=== PATIENT | male | born 1985 | race Caucasian/White ===

== ENCOUNTER 2017-05-08 14:49 | Emergency (ER) | payer SELFPAY ==
[2017-05-08] MEDS ORDERED: diPHENhydraMINE PO* 50 MG PO ONE (14:56)
[2017-05-08] MEDS ORDERED: predniSONE TAB* 20 MG PO ONE (14:57)
[2017-05-08] MEDS ORDERED: EPINEPHrine AMP 1 MG/ML IM ONE (14:58)
[2017-05-08] MEDS ORDERED: EPINEPHRINE 1 MG/ML 1 ML VIAL ONE (15:44)
[2017-05-08 16:10] VITALS: BP 113/67
--- NOTE | 2017-05-22 07:17 | UC ---
Allergic Reaction HPI - HPI Summary HPI Summary: 31 yo male was working outside today ([employer]) when he developed a diffuse itchy rash He felt faint He had some throat tightness no f/c no co no sob - History of Current Complaint Chief Complaint: UCAllergicReaction Stated Complaint: SOB ALLERGIC REACTION Time Seen by Provider: 05/08/17 14:56 Hx Obtained From: Patient Onset/Duration: Gradual Onset, Lasting Hours Severity Initially: Mild Severity Currently: Severe Pain Intensity: 0 Pain Scale Used: 0-10 Numeric Location: Diffuse Character: Pruritus Aggravating Factor(s): Heat Alleviating Factor(s): Nothing Associated Signs And Symptoms: Positive: Lightheadedness, Rash, Throat Tightening - Related Hx Possible Reaction To: Unknown - Allergies/Home Medications Allergies/Adverse Reactions: Allergies Allergy/AdvReac Type Severity Reaction Status Date / Time No Known Allergies Allergy Verified 04/24/15 21:28 PMH/Surg Hx/FS Hx/Imm Hx Previously Healthy: Yes - Surgical History Surgical History: None - Family History Known Family History: Positive: Hypertension - Social History Alcohol Use: Weekly Substance Use Type: None Smoking Status (MU): Former Smoker Review of Systems Constitutional: Negative Skin: Rash Eyes: Negative ENT: Negative Respiratory: Negative Cardiovascular: Negative Gastrointestinal: Negative Genitourinary: Negative Motor: Negative Neurovascular: Negative Musculoskeletal: Negative Neurological: Negative Psychological: Negative Is Patient Immunocompromised?: No All Other Systems Reviewed And Are Negative: Yes Physical Exam Triage Information Reviewed: Yes Appearance: Well-Appearing, No Pain Distress, Well-Nourished Vital Signs: Initial Vital Signs Temp 98 F 05/08/17 15:04 Pulse 74 05/08/17 15:04 Resp 18 05/08/17 15:04 BP 146/91 05/08/17 15:04 Pulse Ox 100 05/08/17 15:04 Vital Signs Reviewed: Yes Eyes: Positive: Conjunctiva Clear ENT: Positive: Hearing grossly normal, Other: - no lip/tongue/uvular edema. Negative: Nasal congestion, Nasal drainage, Trismus, Muffled/hoarse voice Neck: Positive: Supple, Nontender, No Lymphadenopathy Respiratory: Positive: Lungs clear, Normal breath sounds, No respiratory distress Cardiovascular: Positive: RRR, No Murmur Abdomen Description: Positive: Nontender, No Organomegaly Musculoskeletal: Positive: ROM Intact, No Edema Neurological: Positive: Alert Psychological Exam: Normal Skin Exam: Other - urticaria/dermatographia Allergic Reaction Course/Dx - Course Course Of Treatment: prolonged period of observation. instructed on use of epipen and need for f/u with controlled atmospheric furnace brazer. marked improved at d/c. rash almost completely gone/no pruritis/no throat tightness - Differential Dx/Diagnosis Provider Diagnoses: anaphylatic reaction Discharge - Discharge Plan Condition: Improved Disposition: HOME Prescriptions: Epinephrine [Epipen 2-Marco] 0.3 mg IM ONCE #1 inj Famotidine TAB* [Pepcid 20 MG TAB*] 20 mg PO DAILY #5 tab Prednisone [Deltasone] 40 mg PO DAILY #8 tab hydrOXYzine HCL TAB* [Atarax TAB*] 25 mg PO QID PRN #20 tab PRN Reason: Itching Patient Education Materials: Anaphylaxis (ED) Referrals: Gunnar Diaz MD [Medical Doctor] - As Soon As Possible Gil Aguilar MD [Medical Doctor] - As Soon As Possible No Primary Care Phys,NOPCP [Primary Care Provider] - Additional Instructions: recheck for worsening symptoms you should follow up with an controlled atmospheric furnace brazer call for any questions
== END 2017-05-08 15:53 | disposition home or self-care (01) ==
LOC: UCEAST 14:49
DX: T78.2XXA Anaphylactic shock, unspecified, initial encounter (principal); R21 Rash and other nonspecific skin eruption; R07.0 Pain in throat; Z87.891 Personal history of nicotine dependence
CPT/HCPCS: 96372; 99212; A9270-GY; G0463; J0171; J7512

== ENCOUNTER 2017-05-12 20:06 | Emergency (ER) | payer SELFPAY ==
[2017-05-12] MEDS ORDERED: NS 0.9% 1000 ML* 1,000 ML IV ONE (22:59)
--- NOTE | 2017-05-12 23:00 | ED ---
Complex/Multi-Sys Presentation - HPI Summary HPI Summary: 31 male [facility] with complaints of having an allergic reaction after eating trail mix. Patient states he had similar reaction this past Friday after eating trail mix as well. Patient however did not know this was the possible allergen. Given medications, including atarax, famotidine and prednisone however did not take them until today when symptoms returned again. Patient states the symptoms have resolved after taking his medication and given benadryl on ambulance. Symptoms included, hives, itching, feeling lightheaded and SOB. Denies throat swelling and difficulty breathing. Also of complaint is patient has began having 6-7 episodes of bloody diarrhea. States it is a a significant amount and bright to dark colored red. Denies nausea/vomiting. No recent travel or antibiotic use. No abdominal pain except when he is having a bowel movement, has some dull aching/cramping pain. No other pain. Denies fever/ chills. No PMHx or other complaints.No abdominal surgeries or prior history. No urinary or genitalia symptoms. - History Of Current Complaint Chief Complaint: EDAllergicReaction Time Seen by Provider: 05/12/17 20:15 Hx Obtained From: Patient Onset/Duration: Sudden Onset, Lasting Days Timing: Constant Severity Currently: None Severity Initially: Mild Aggravating Factor(s): nothing Alleviating Factor(s): nothing Associated Signs And Symptoms: Positive: SOB - allergic reaction- resolved, Diarrhea - w/ blood, Other - rash urticaria/pruritis resolved- allergic reaction - Allergies/Home Medications Allergies/Adverse Reactions: Allergies Allergy/AdvReac Type Severity Reaction Status Date / Time No Known Allergies Allergy Verified 04/24/15 21:28 PMH/Surg Hx/FS Hx/Imm Hx Endocrine/Hematology History: Denies: Hx Diabetes Cardiovascular History: Denies: Hx Hypertension Respiratory History: Denies: Hx Asthma - Surgical History Surgery Procedure, Year, and Place: n/a - Immunization History Immunizations Up to Date: Yes Infectious Disease History: No Infectious Disease History: Denies: Hx Clostridium Difficile, Hx Hepatitis, Hx Human Immunodeficiency Virus (HIV), Hx of Known/Suspected MRSA, Hx Shingles, Hx Tuberculosis, Hx Known/ Suspected VRE, Hx Known/Suspected VRSA, History Other Infectious Disease, Traveled Outside the [place] in Last 30 Days - Family History Known Family History: Positive: None - Social History Alcohol Use: Weekly Substance Use Type: Reports: None Smoking Status (MU): Former Smoker Review of Systems Constitutional: Negative Cardiovascular: Negative Positive: Shortness Of Breath - resolved Positive: Abdominal Pain, Diarrhea Genitourinary: Negative Positive: Rash - uricaria, resolved Neurological: Negative All Other Systems Reviewed And Are Negative: Yes Physical Exam Triage Information Reviewed: Yes Vital Signs On Initial Exam: Initial Vitals Temp Pulse Resp BP Pulse Ox 97.9 F 54 18 115/68 100 05/12/17 20:09 05/12/17 20:09 05/12/17 20:09 05/12/17 20:09 05/12/17 20:09 Vital Signs Reviewed: Yes Appearance: Positive: Well-Appearing, No Pain Distress, Well-Nourished Skin: Positive: Warm, Skin Color Reflects Adequate Perfusion, Dry, Other - no sign currently of urticaria or rash noted. Negative: Cold, Cyanosis @, Pale, Erythema @ Head/Face: Positive: Normal Head/Face Inspection Eyes: Positive: Conjunctiva Clear ENT: Positive: Hearing grossly normal, Pharynx normal Neck: Positive: Supple, Nontender Respiratory/Lung Sounds: Positive: Clear to Auscultation, Breath Sounds Present. Negative: Rales, Rhonchi, Wheezes Cardiovascular: Positive: Normal, RRR, Pulses are Symmetrical in both Upper and Lower Extremities. Negative: Murmur, Rub Abdomen Description: Positive: Nontender - throughout, No Organomegaly, Soft. Negative: Bruit, CVA Tenderness (R), CVA Tenderness (L), Distended, Guarding, McBurney's Point Tenderness, Peritoneal Signs, Pulsatile Mass Bowel Sounds: Positive: Present, Hyperactive Male Genital Exam: Positive: normal genitalia - per patient Musculoskeletal: Positive: Normal, Strength/ROM Intact Neurological: Positive: Normal, Sensory/Motor Intact, Alert, Oriented to Person Place, Time, CN Intact II-III, Reflexes Intact, NV Bundle Intact Distally, Normal Gait Psychiatric: Positive: Affect/Mood Appropriate - [place] Coma Scale Coma Scale Total: 15 Diagnostics - Vital Signs Vital Signs Temp Pulse Resp BP Pulse Ox 05/12/17 20:09 97.9 F 54 18 115/68 100 - Laboratory Result Diagrams: 05/12/17 23:24 05/12/17 23:24 Lab Statement: Any lab studies that have been ordered have been reviewed, and results considered in the medical decision making process. Re-Evaluation - Re-Evaluation First Eval Re-Evaluation Time: 12:00 Change: Unchanged - still feeling comfortable without complaint. Second Eval Re-Evaluation Time: 02:22 Change: Unchanged - updated on lab results and plan of action. patients questions were answered, agrees and understands, follow up PCP. 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 not currently having any allergic symptoms, resolved prior to being evaluated. with additional complaint of blood in loose stool, full work up was completed. WBC with left shift and CRP elevated. Appears patient is suffering from a colitis. Normal vitals. No abdominal pain or other significant PE findings. Occult blood positive. Stool culture pending. Patient was comfortable throughout stay. Due to HPI, PE findings and labs will treat for a colitis. Continue allergy medications to avoid allergic reaction symptoms and do not eat trail mix. No concern for other emergent etiology at this time. No further imaging appears to be required, non tender abdomen. Will treat with Cipro/Flagyl. fluids and BRAT diet. Follow up with PCP/GI. Aware of worsening signs and symptoms to watch out for and to return immediately if occur or symptoms persist/worsen. Patient agrees and understands. recommeded allergy testing. - Diagnoses Differential Diagnoses/HQI/PQRI: Urinary Tract Infection, Other - allergic reaction, colitis, appendicitis, diarrhea, hematochezia, c diff, IBS Provider Diagnoses: Colitis, Allergic reaction Discharge - Discharge Plan Condition: Stable Disposition: HOME Prescriptions: Ciprofloxacin TAB* [Cipro 500 MG TAB*] 500 mg PO BID #14 tab Metronidazole [Flagyl 500 MG TAB] 500 mg PO TID #1 tab predniSONE TAB* [Deltasone TAB*] 20 mg PO DAILY #3 tab Patient Education Materials: Urticaria (ED), Colitis (ED), General Allergic Reaction (ED) Referrals: Selina Sales [Primary Care Provider] - Catrachito Summers MD [Medical Doctor] - Additional Instructions: Take prescribed antibiotics as directed to help with colitis. Continue anti-inflammatory medication and allergy medication to prevent allergic reaction, 7 days total. Drink plenty of fluids. Recommend BRAT diet (bananas, rice, applesauce and toast). Follow up with PCP within 1 week. Any new or worsening symptoms such as fever/chills, pain and increasing amount of blood, please seek medical attention immediately. Recommend allergy testing.
[2017-05-12 23:41] LABS: Hematocrit 46 % (42-52); Mean Corpuscular HGB Conc 35 g/dl (31-36); Mean Corpuscular Hemoglobin 31 pg (27-31); Mean Corpuscular Volume 90 fL (80-94); Mean Platelet Volume 8 um3 (7.4-10.4); Red Blood Count 5.09 10^6/ul (4.0-5.4); Red Cell Distribution Width 13 % (10.5-15); White Blood Count 21.1 10^3/ul (3.5-10.8)
[2017-05-12 23:54] LABS: ALT 16 U/L (7-52); AST 18 U/L (13-39); Albumin 3.9 g/dL (3.2-5.2); Alkaline Phosphatase 60 U/L (34-104); Anion Gap 5 mmol/L (2-11); BUN/Creatinine Ratio 20.6 (8-20); Blood Urea Nitrogen 21 mg/dL (6-24); C Reactive Protein < 1.00 mg/L (< 5.00); CO2 Carbon Dioxide 27 mmol/L (22-32); Calcium 9.2 mg/dL (8.6-10.3); Chloride 104 mmol/L (101-111); EGFR Non-African American 86.3 (>60); Globulin 2.4 g/dL (2-4); Glucose 118 mg/dL (70-100); Lipase 20 U/L (11.0-82.0); Magnesium 2.1 mg/dL (1.9-2.7); Potassium 4.5 mmol/L (3.5-5.0); Sodium 136 mmol/L (133-145); Total Protein 6.3 g/dL (6.4-8.9)
[2017-05-13 00:41] LABS: Urine Bacteria Absent (Absent); Urine Bilirubin Negative (Negative); Urine Glucose Negative (Negative); Urine Nitrite Negative (Negative)
[2017-05-13] MEDS ORDERED: Ciprofloxacin TAB* 500 MG PO ONE (02:06)
[2017-05-13] MEDS ORDERED: metroNIDAZOLE TAB* 250 MG PO ONE (02:07)
[2017-05-13 02:31] VITALS: BP 104/41
== END 2017-05-13 02:32 | disposition home or self-care (01) ==
LOC: ED 20:06
DX: K52.9 Noninfective gastroenteritis and colitis, unspecified (principal); T78.1XXA Other adverse food reactions, not elsewhere classified, initial encounter; L50.0 Allergic urticaria; R06.02 Shortness of breath; X58.XXXA Exposure to other specified factors, initial encounter; Z87.891 Personal history of nicotine dependence
CPT/HCPCS: 36415; 80053; 81003; 81015; 82272; 83605; 83630; 83690; 83735; 85025; 86140; 86850; 86900; 86901; 87045; 87046; 87077; 87493; 87899; 99282; A9270-GY

== ENCOUNTER 2018-08-06 14:35 | Inpatient (IN) | payer OTHER ==
[2018-08-06 15:10] LABS: Urine Appearance Clear; Urine Bacteria 1+ (Absent); Urine Bilirubin Negative (Negative); Urine Blood 1+ (Negative); Urine Color Straw; Urine Glucose Negative (Negative); Urine Ketones Trace (Negative); Urine Nitrite Negative (Negative); Urine Protein Negative (Negative); Urine Red Blood Cell Trace(0-2/hpf) (Absent); Urine Specific Gravity 1.003 (1.010-1.030); Urine Urobilinogen Negative (Negative); Urine White Blood Cell Absent (Absent)
--- NOTE | 2018-08-06 15:19 | ED ---
Psychiatric Complaint - HPI Summary HPI Summary: Patient is a 32 y/o M presenting to ED with complaints of ricky. Mother is present in the room. He claims that he is possibly bipolar, possibly schizophrenic. He states that he is "obviously manic". He reports that in the past three days he has had three hours of sleep. He notes that his face is red, hands cracked and chapped as he has been spending a lot of time outside. He works at [employer]. PMHx of manic depression and OCD. He is not on any medications at present. Patient went to [facility] today, spoke with Radha, who is his counselor. Radha referred patient to ED. Patient reports Hx of marijuana usage, states that he stopped smoking June of 2018. He denies visual hallucinations but endorses auditory hallucinations stating The TV can talk to me if I allow it to. Patient claims that God, a higher power talks to him as well. However, he states that he has not been having these auditory hallucinations recently. Patient states that he was obsessed with the [employer]umin[employer] in 2017. He states that he was in the and tells a story about him whipping his testicles out at a large [employer] function. He states that psychiatric problems onset when he started smoking marijuana. Patient notes that he started smoking spice afterwards while he was in the . FMHx of schizophrenia. He went into ten years ago. On triage, pain is denied, nothing is noted to aggravate/alleviate Sx. Home medications, allergies, and nurse's note reviewed. - History Of Current Complaint Chief Complaint: EDMentalHealth Time Seen by Provider: 08/06/18 14:52 Hx Obtained From: Patient Onset/Duration: Lasting Days - three days, only three hours of sleep, Still Present Timing: Constant Severity Currently: None - pain denied Character: Manic Aggravating Factor(s): Nothing Alleviating Factor(s): Nothing Associated Signs And Symptoms: Positive: Sleep Disturbance - three hours of sleep over past three days - Allergies/Home Medications Allergies/Adverse Reactions: Allergies Allergy/AdvReac Type Severity Reaction Status Date / Time nut - unspecified Allergy Hives Verified 08/06/18 15:37 PMH/Surg Hx/FS Hx/Imm Hx Endocrine/Hematology History: Denies: Hx Diabetes Cardiovascular History: Denies: Hx Hypertension Respiratory History: Denies: Hx Asthma Psychiatric History: Reports: Other Psychiatric Issues/Disorders - OCD, manic depression - Surgical History Surgery Procedure, Year, and Place: n/a Infectious Disease History: No Infectious Disease History: Denies: Hx Clostridium Difficile, Hx Hepatitis, Hx Human Immunodeficiency Virus (HIV), Hx of Known/Suspected MRSA, Hx Shingles, Hx Tuberculosis, Hx Known/ Suspected VRE, Hx Known/Suspected VRSA, History Other Infectious Disease, Traveled Outside the [place] in Last 30 Days - Family History Known Family History: Positive: Other - FMHx of schizophrenia - Social History Alcohol Use: Weekly Substance Use Type: Reports: None Smoking Status (MU): Former Smoker Review of Systems Positive: Other - POSITIVE - LACK OF SLEEP Positive: Other - REDNESS OF FACE, HANDS ARE CRACKED AND CHAPPED Psychological: Other - POSITIVE - RICKY, AUDITORY HALLUCINATIONS; NEGATIVE - VISUAL HALLUCINATIONS All Other Systems Reviewed And Are Negative: Yes Physical Exam - Summary Physical Exam Summary: Appearance: Well appearing, no pain distress Skin: warm, dry, reflects adequate perfusion; chaffing of hands, erythema of face Head/face: normal Eyes: EOMI, HUMBLE ENT: mucous membranes moist Neck: supple, non-tender Respiratory: CTA, breath sounds present Cardiovascular: RRR, pulses symmetrical Abdomen: non-tender, soft Bowel Sounds: present Musculoskeletal: normal, strength/ROM intact Neuro: normal, sensory motor intact, A&Ox3 Psych: rambling, tangential speech, bizarre affect Triage Information Reviewed: Yes Vital Signs On Initial Exam: Initial Vitals Temp Pulse Resp BP Pulse Ox 98.3 F 98 20 131/103 100 08/06/18 14:40 08/06/18 14:40 08/06/18 14:40 08/06/18 14:40 08/06/18 14:40 Vital Signs Reviewed: Yes Diagnostics - Vital Signs Vital Signs Temp Pulse Resp BP Pulse Ox 08/06/18 14:40 98.3 F 98 20 131/103 100 - Laboratory Result Diagrams: 08/06/18 15:24 08/06/18 15:24 Lab Statement: Any lab studies that have been ordered have been reviewed, and results considered in the medical decision making process. - EKG 1525 Cardiac Rate: NL - rate of 85 BPM EKG Rhythm: Sinus Rhythm ST Segment: Normal Summary of EKG Findings: EKG showed NSR with rate of 85 BPM, normal axis, normal intervals, normal ST with baseline artifact. Re-Evaluation - Re-Evaluation First Eval Re-Evaluation Time: 18:05 Comment: Patient was medically cleared for MHE. Course/Dx - Course Course Of Treatment: Nurse's notes reviewed. Patient is manic and experiencing positive symptoms. His CPK was slightly elevated and so IV fluids were given. Drug screen might not be accurate due to patient diluting it with water. This may have to be repeated. He was cleared for mental health evaluation and is pending that assessment. Signed out to oncoming ER physician. - Differential Dx/Clinical Impression Differential Diagnosis/HQI/PQRI: Positive: Acute Psychosis, Anxiety, Bipolar Disorder, Depression, Schizophrenia Provider Diagnosis: Acute psychosis Discharge - Sign-Out/Discharge Documenting (check all that apply): Sign-Out Patient Signing out patient TO: Noah Vargas Receiving patient FROM: Real Corcoran - Discharge Plan Condition: Stable Referrals: Antoine RJAAN,Selina Alexander [Physician Mild Disabilities Teacher] - - Billing Disposition and Condition Condition: STABLE - Attestation Statements Document Initiated by Scribe: Yes Documenting Scribe: MARGAUX CONTRERAS Provider For Whom Scribe is Documenting (Include Credential): REAL CORCORAN MD Scribe Attestation: I, MARGAUX CONTRERAS , scribed for RELA CORCORAN MD on 08/06/18 at 1838. Scribe Documentation Reviewed: Yes Provider Attestation: The documentation as recorded by the MARGAUX monk accurately reflects the service I personally performed and the decisions made by me, REAL CORCORAN MD Status of Scribe Document: Viewed
[2018-08-06 15:28] LABS: Barbiturates Urine Screen None Detected (None Detect); Benzodiazepine Urine Screen None Detected (None Detect); Urine Cannabinoids Screen None Detected (None Detect)
[2018-08-06 15:32] LABS: ABS Basophils 0.1 10^3/ul (0-0.2); ABS Eosinophils 0 10^3/ul (0-0.6); ABS Monocytes 0.9 10^3/ul (0-0.8); ABS Nucleated RBC 0 10^3/ul; Eosinophil % 0.2 %; Hematocrit 47 % (42-52); Hemoglobin 16.3 g/dl (14.0-18.0); Lymphocyte % 24.9 %; Mean Corpuscular HGB Conc 34 g/dl (31-36); Mean Corpuscular Hemoglobin 31 pg (27-31); Mean Corpuscular Volume 91 fL (80-94); Nucleated Red Blood Cells % 0.1; Platelet Count 285 10^3/ul (150-450); Red Blood Count 5.22 10^6/ul (4.00-5.40); Red Cell Distribution Width 14 % (10.5-15)
[2018-08-06 15:57] LABS: ALT 49 U/L (7-52); AST 58 U/L (13-39); Alkaline Phosphatase 77 U/L (34-104); Anion Gap 6 mmol/L (2-11); BUN/Creatinine Ratio 9.8 (8-20); Blood Urea Nitrogen 10 mg/dL (6-24); CO2 Carbon Dioxide 30 mmol/L (22-32); Calcium 10.1 mg/dL (8.6-10.3); Chloride 102 mmol/L (101-111); EGFR Non-African American 85.8 (>60); Globulin 2.5 g/dL (2-4); Glucose 121 mg/dL (70-100); Potassium 4.1 mmol/L (3.5-5.0); Sodium 138 mmol/L (135-145); Total Protein 7.5 g/dL (6.4-8.9)
[2018-08-06 16:11] LABS: Acetaminophen < 15 mcg/mL; Alcohol < 10 mg/dL (<10); Salicylate < 2.50 mg/dL (<30)
[2018-08-06] MEDS ORDERED: NS 0.9% 1000 ML* 1,000 ML IV ONE ×2 (16:13)
[2018-08-06 16:25] LABS: TSH (Thyroid Stimulating Horm) 1.78 mcIU/mL (0.34-5.60)
[2018-08-06] MEDS ORDERED: LORazepam TAB(*) 1 MG PO ONE (16:55)
--- NOTE | 2018-08-06 19:28 | ED ---
Progress - Progress Note Progress Note: This pt was signed out by Dr. Corcoran, pending disposition, awaiting mental health evaluation. Pt had a mental health evaluation and his case was reviewed by Dr. Nuñez, psychiatrist. Dr. Nuñez will admit the pt involuntary to [facility] with dx with psychosis NOS. Re-Evaluation - Re-Evaluation First Eval Re-Evaluation Time: 18:05 Comment: Patient was medically cleared for MHE. Course/Dx - Diagnoses Provider Diagnoses: Unspecified psychosis Discharge - Sign-Out/Discharge Documenting (check all that apply): Patient Departure - Admit to [facility], Receiving Sign-Out Receiving patient FROM: Real Corcoran - Discharge Plan Condition: Stable Disposition: [facility]CHIATRIC FACILITY-[facility] Referrals: Antoine RAJAN,Selina Alexander [Physician Tooth Polisher] - - Attestation Statements Document Initiated by Scribe: Yes Documenting Scribe: Kenia Philip Provider For Whom Scribe is Documenting (Include Credential): Noah Vargas MD Scribe Attestation: Kenia Toth, scribed for Noah Vargas MD on 08/06/18 at 2004. Status of Scribe Document: Ready
[2018-08-06] MEDS ORDERED: Mouth Piece, Nicotine* 1 EACH CARTRIDGE ONE (20:00)
[2018-08-06] MEDS ORDERED: Al Hydrox/Mg Hydrox/Simet LIQ* 30 ML UDC PO PRN (21:23)
[2018-08-06] MEDS: LORazepam TAB(*) 1 MG PO PRN (22:58)
[2018-08-06] MEDS: Nicotine GUM* 2 MG PO PRN (23:35)
[2018-08-07 08:11] LABS: HDL Cholesterol 69.4 mg/dL
[2018-08-07] MEDS: Mouth Piece, Nicotine* 1 EACH CARTRIDGE INH PRN (09:09)
[2018-08-07] MEDS: Multivitamins/Minerals TAB PO SCH (09:09)
[2018-08-07] MEDS: Nicotine Inhaler* 10 MG AMP INH PRN ×2 (09:09→19:01)
[2018-08-07] MEDS: Nicotine GUM* 2 MG PO PRN ×5 (09:13→23:40)
--- NOTE | 2018-08-07 11:23 | PN ---
[facility]: Group Therapy Note - Service Type Service Type: 13118 Group Psychotherapy - Cognitive Behavioral Group Therapy ( CBT):Patient presented in CBT programming as disorganized and disruptive in discussion and needed repeated redirection to attend to presented materials.
--- NOTE | 2018-08-07 14:08 | HP ---
H&P (Free Text) History and Physical: CC "I am manic HPI 32 year old white single male with past history of bipolar disorder presented to the Emergency room with his mother. He reported that he added 5000 facebook friends last night and has been up for the last 2 days. Because I am manic. I want to be a falken, its where I luciano with birds who go fetch my meals. He reported that he goes on facebook all day and night and sends messages to everyone he knows. He said that he wishes to go out in the [place] all day and night to hike. He reports not eating much recently I dont have a appetite. He denied suicidal ideation, intent or plan. He denied homicidal ideation intent or plan. He reports that the last time he used cannabis was July 17. He reports since stopping using cannabis he can walk far distances and spend unlimited time hiking outdoors. Bipolar He reported feeling irritable most of the time while having an persistent abundance of energy most of the day without the use of energy drinks, stimulants , or recreational drug use. He reported having the decreased need to sleep, and a prolonged elevated heighted mood . he reported racing thoughts about how he is going to be a famous plant botanist. MDD He reported in the past having feelings of low self worth , feeling empty inside , with feelings of hopelessness .He reported unintentional weight loss and lack of appetite . He has trouble staying asleep and wakes up during the night. He in the past reported prolonged periods of low levels of energy, concentration, and difficulty initiating and completing tasks. Psychosis He denied hearing things that other people do not hear or seeing things other people do not see. He denied feeling that the TV is making references. He said that he is trustful of others and feels safe on the unit. The patient denied auditory and/ or visual hallucinations. Anxiety He denied having symptoms of anxiety. He denied worrying most of the day and denied panic attacks. PTSD He denied flashbacks or recurrent nightmares or avoidance. PAST PSYCHIATRIC HISTORY: History of Bipolar disorder 1st admission: 1 past hospitalizations in 2009 to [facility] for 10 days for synthetic cannabis induced psychosis History of past suicide/homicide attempts : Denied past suicide attempts. He denied past homicidal incidents. Outpatient follow-up: Currently receiving mental health treatment follow up care at [facility] with therapist, Radha. Medications: Past trials of medications included Seroquel and Prozac. Patient reports suicidal ideation with Prozac use and Seroquel held him back. FAMILY HISTORY: - Suicide: None - Mental illness: Grandfather- Schizophrenia - Substance abuse: Father- Alcohol use disorder. SUBSTANCE ABUSE HISTORY: He denied heroin and cocaine or using other illicit substances. He denied abusing pills not prescribed to him. He denied past substance abuse treatment. He smoked cannabis daily for the last year and recently quit. He denied alcohol use in the past or present. He smokes tobacco 1/2ppd. SOCIAL HISTORY: He is a single white male who has no children. 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 He doesnt have a close relationship with his father. He lives with his mother who was his primary clinical care leader during childhood. , has 2 sons who live out of state. His parents when he was at a young age. His father abused alcohol. was raised by both of his parents who were both alcoholics. Both his parents are not living. He has some college education . He denied special education . He denied legal history. He reported being in the [employer] for one year and exposed himself to a female and received a honorable discharge. PAST MEDICAL HISTORY: Denied past or present medical conditions Allergies: He denied known drug allergies. Allergic reaction to nuts. Physical Exam: Please see ED note Mental Status Exam Appearance: 32 year old male thin has blankets wrapped around him. Psychomotor activity: No psychomotor agitation or retardation Eye contact: Fair Posture: Upright Attitude/behavior: Cooperative Speech: Mildly rapid rate of speech Mood: "Manic " Affect: constricted Thought process: flight of ideas Thought content: Tangential Perceptions: He did not appear to be responding to internal stimuli. No visual hallucinations and/ or auditory hallucinations. Suicidal/homicidal targets: Denied suicidal ideation, intent or plan. Denied homicidal ideation, intent or plans. Sensorium/orientation: Awake and alert. Oriented to self, location, and time Insight/judgment: Fair insight and judgment. AXIS I: Bipolar I, current manic phase. Nicotine use disorder, Cannabis use disorder currently in remission. Plan Involuntary admission. 9.39 Haldol and Ativan PRN orders in place. The patient requires inpatient admission at this time to assure safety, receive treatment and work toward stabilization. Admit to BSU. Q15 minute observation. Start regular diet free of nuts. Encourage participation in activities on the milieu. Patient evaluated in ED and is medically stable for admission. VS and Lab results reviewed Start lithium 300mg BID for mood stabilization. Other treatment options offered antipsychotic s and other mood stabilizers offered and patient refused. Start nicotine replacement treatment for nicotine use disorder. Quitting resources upon discharge will be offered. Goals to include improve mood regulation. Disposition- Can return home to live with mother. Plan to discharge Friday/ Friday depending on response to treatment. The risks, benefits, and alternative treatment options were discussed as well as of the risks of refusing treatment. Treatment associated risks discussed . After this discussion and an acknowledgement of his understanding he made the decision for the current type of treatment.
[2018-08-07] MEDS: CMCS Lithium Carbonate ER (NF) 300 MG TAB.ER PO SCH (21:24)
[2018-08-07] MEDS: Acetaminophen TAB* 325 MG PO PRN (21:26)
[2018-08-08] MEDS: Nicotine GUM* 2 MG PO PRN ×2 (05:20→17:34)
[2018-08-08] MEDS: Acetaminophen TAB* 325 MG PO PRN ×2 (08:22→20:07)
[2018-08-08] MEDS: Multivitamins/Minerals TAB PO SCH (08:22)
[2018-08-08] MEDS: CMCS Lithium Carbonate ER (NF) 300 MG TAB.ER PO SCH ×2 (08:22→20:08)
--- NOTE | 2018-08-08 15:32 | PN ---
Subjective - Subjective Date of Service: 08/08/18 Service Type: 09711 Hosp care 15 min low complexity Subjective: Hima is seen in weekend coverage for Dr. Sagastume. 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 He is tolerating lithium well, explaining how he diagnosed himself with bipolar disorder and came to the determination that what he really needed was lithium. He seems to be expecting discharge today and is somewhat disappointed to find out this is not possible. He requests to go outside and smoke Camel cigarettes with his mother. He denies any SI or HI, saying "I love all living things...including myself." Objective - Appearance Appearance: Well Developed/Nourished Dysmorphic Features: No Hygiene: Normal Grooming: Well Kept - Behavior Psychomotor Activities: Normal Exhibits Abnormal Movement: No - Attitude and Relatedness Attitude and Relatedness: Cooperative Eye Contact: Good - Speech Quality: Pressured Latencies: Short Quantity: Copious - Mood Patient's Decription of Mood: "Great" - Affect Observed Affect: Expansive Affect Consistent with: Euphoria - Thought Process Patient's Thought Process: Tangential Thought Content: No Passive Wish, No Suicidal Planning, No Homicidal Ideation, No Paranoid Ideation - Sensorium Experiencing Hallucinations: No, Sensorium is Clear Type of Hallucinations: Visual: No, Auditory: No, Command: No - Level of Consciousness Level of Consciousness: Alert Orientation: Yes Intact, Yes Orientated to Time, Yes Orientated to Place, Yes Orientated to Person - Impulse Control Impulse Control: Poor - Insight and Judgement Insight and Judgement: Impaired - Group Participation Particating in Group Activities: Yes - Medication Management Medication Management Adherence: Yes Assessment - Assessment Merits Inpatient Hospitalization: For Immediate Safety, For Stabilization Inpatient DSM-V Dx: F31.13 Clinical Impression: 32 y.o. , white male with a history of substance misuse arrives on an involuntary status due to the recent emergence of manic symptoms following self- discontinuation of drugs and alcohol. MHU: Problem List - Patient Problems (1) Bipolar disorder with severe ricky Current Visit: Yes Status: Acute Priority: High Code(s): F31.13 - BIPOLAR DISORD, CRNT EPSD MANIC W/O PSYCH FEATURES, SEVERE SNOMED Code(s): 900317015 Plan - Plan Treatment Plan: Name: HIMA GONZALEZ Birthdate: 1985 [id number] The patient is receiving lithium 300mg PO BID. Will check lithium level on Friday (08/10) morning. Continue inpatient level care. Continued Medication Management: Start Medication Medications: Current Medications Acetaminophen (Tylenol Tab*) 650 mg PO Q4H PRN PRN Reason: PAIN; OR TEMP > 101 Last Admin: 08/08/18 08:22 Dose: 650 mg Al Hydrox/Mg Hydrox/Simethicone (Maalox Plus*) 30 ml PO Q4H PRN PRN Reason: INDIGESTION Device (Nicotine Mouth Piece*) 1 each INH ONCE PRN PRN Reason: CRAVING Last Admin: 08/07/18 09:09 Dose: 1 each Haloperidol (Haldol Tab*) 5 mg PO Q4H PRN PRN Reason: AGITATION [place] Carbonate ([place] Carbonate Er (Nf)) 300 mg PO BID [facility] Last Admin: 08/08/18 08:22 Dose: 300 mg Lorazepam (Ativan Tab(*)) 2 mg PO Q4H PRN PRN Reason: AGITATION Last Admin: 08/06/18 22:58 Dose: 2 mg Multivitamins/Minerals (Theragran/Minerals Tab*) 1 tab PO DAILY [facility] Last Admin: 08/08/18 08:22 Dose: 1 tab Nicotine (Nicotine Inhaler*) 10 mg INH Q2H PRN PRN Reason: CRAVING Last Admin: 08/07/18 19:01 Dose: 10 mg Nicotine Polacrilex (Nicotine Gum*) 2 mg PO Q2H PRN PRN Reason: CRAVING Last Admin: 08/08/18 05:20 Dose: 2 mg - Discharge Plan Discharge Plan: Inpatient Hospitalization Lab Results - Lab Results Lab Results: 08/06/18 08/06/18 08/06/18 14:55 14:55 15:24 WBC 12.0 H RBC 5.22 Hgb 16.3 Hct 47 MCV 91 MCH 31 MCHC 34 RDW 14 Plt Count 285 MPV 8.0 Neut % (Auto) 66.9 Lymph % (Auto) 24.9 Boundary % (Auto) 7.6 Eos % (Auto) 0.2 Baso % (Auto) 0.4 Absolute Neuts (auto) 8.0 H Absolute Lymphs (auto) 3.0 Absolute Monos (auto) 0.9 H Absolute Eos (auto) 0 Absolute Basos (auto) 0.1 Absolute Nucleated RBC 0 Nucleated RBC % 0.1 Sodium Potassium Chloride Carbon Dioxide Anion Gap BUN Creatinine Est GFR ( Amer) Est GFR (Non-Af Amer) BUN/Creatinine Ratio Glucose Hemoglobin A1c Calcium Total Bilirubin AST ALT Alkaline Phosphatase Total Creatine Kinase Total Protein Albumin Globulin Albumin/Globulin Ratio Triglycerides Cholesterol LDL Cholesterol HDL Cholesterol TSH Urine Color Straw Urine Appearance Clear Urine pH 6.0 Ur Specific [place] 1.003 L Urine Protein Negative Urine Ketones Trace A Urine Blood 1+ A Urine Nitrate Negative Urine Bilirubin Negative Urine Urobilinogen Negative Ur Leukocyte Esterase Negative Urine WBC (Auto) Absent Urine RBC (Auto) Trace(0-2/hpf) Urine Bacteria 1+ A Urine Glucose Negative Salicylates Urine Opiates Screen None detected Acetaminophen Ur Barbiturates Screen None detected Ur Phencyclidine Scrn None detected Ur Amphetamines Screen None detected U Benzodiazepines Scrn None detected Urine Cocaine Screen None detected U Cannabinoids Screen None detected Serum Alcohol 08/06/18 08/06/18 08/07/18 15:24 15:24 07:40 WBC RBC Hgb Hct MCV MCH MCHC RDW Plt Count MPV Neut % (Auto) Lymph % (Auto) Boundary % (Auto) Eos % (Auto) Baso % (Auto) Absolute Neuts (auto) Absolute Lymphs (auto) Absolute Monos (auto) Absolute Eos (auto) Absolute Basos (auto) Absolute Nucleated RBC Nucleated RBC % Sodium 138 Potassium 4.1 Chloride 102 Carbon Dioxide 30 Anion Gap 6 BUN 10 Creatinine 1.02 Est GFR ( Amer) 103.8 Est GFR (Non-Af Amer) 85.8 BUN/Creatinine Ratio 9.8 Glucose 121 H Hemoglobin A1c Calcium 10.1 Total Bilirubin 1.10 H AST 58 H ALT 49 Alkaline Phosphatase 77 Total Creatine Kinase 910 H Total Protein 7.5 Albumin 5.0 Globulin 2.5 Albumin/Globulin Ratio 2.0 Triglycerides 65 Cholesterol 142 LDL Cholesterol 60 HDL Cholesterol 69.4 TSH 1.78 Urine Color Urine Appearance Urine pH Ur Specific [place] Urine Protein Urine Ketones Urine Blood Urine Nitrate Urine Bilirubin Urine Urobilinogen Ur Leukocyte Esterase Urine WBC (Auto) Urine RBC (Auto) Urine Bacteria Urine Glucose Salicylates < 2.50 Urine Opiates Screen Acetaminophen < 15 Ur Barbiturates Screen Ur Phencyclidine Scrn Ur Amphetamines Screen U Benzodiazepines Scrn Urine Cocaine Screen U Cannabinoids Screen Serum Alcohol < 10 08/07/18 07:40 WBC RBC Hgb Hct MCV MCH MCHC RDW Plt Count MPV Neut % (Auto) Lymph % (Auto) Boundary % (Auto) Eos % (Auto) Baso % (Auto) Absolute Neuts (auto) Absolute Lymphs (auto) Absolute Monos (auto) Absolute Eos (auto) Absolute Basos (auto) Absolute Nucleated RBC Nucleated RBC % Sodium Potassium Chloride Carbon Dioxide Anion Gap BUN Creatinine Est GFR ( Amer) Est GFR (Non-Af Amer) BUN/Creatinine Ratio Glucose Hemoglobin A1c 5.3 Calcium Total Bilirubin AST ALT Alkaline Phosphatase Total Creatine Kinase Total Protein Albumin Globulin Albumin/Globulin Ratio Triglycerides Cholesterol LDL Cholesterol HDL Cholesterol TSH Urine Color Urine Appearance Urine pH Ur Specific [place] Urine Protein Urine Ketones Urine Blood Urine Nitrate Urine Bilirubin Urine Urobilinogen Ur Leukocyte Esterase Urine WBC (Auto) Urine RBC (Auto) Urine Bacteria Urine Glucose Salicylates Urine Opiates Screen Acetaminophen Ur Barbiturates Screen Ur Phencyclidine Scrn Ur Amphetamines Screen U Benzodiazepines Scrn Urine Cocaine Screen U Cannabinoids Screen Serum Alcohol
[2018-08-09] MEDS: Nicotine GUM* 2 MG PO PRN ×5 (02:02→20:10)
[2018-08-09] MEDS: Multivitamins/Minerals TAB PO SCH (07:58)
[2018-08-09] MEDS: CMCS Lithium Carbonate ER (NF) 300 MG TAB.ER PO SCH ×2 (07:59→20:08)
[2018-08-09] MEDS: Acetaminophen TAB* 325 MG PO PRN ×2 (08:00→13:35)
[2018-08-09] MEDS: LORazepam TAB(*) 1 MG PO PRN ×2 (15:12→20:54)
[2018-08-10] MEDS: CMCS Lithium Carbonate ER (NF) 300 MG TAB.ER PO SCH (08:24)
[2018-08-10] MEDS: Multivitamins/Minerals TAB PO SCH (08:24)
[2018-08-10] MEDS: Nicotine GUM* 2 MG PO PRN ×4 (08:25→22:20)
--- NOTE | 2018-08-10 13:49 | PN ---
Subjective - Subjective Date of Service: 08/10/18 Service Type: [id number] Hosp care 15 min low complexity Subjective: Nursing Report: Patient was visible on unit, requesting ativan prn. Slept overnight. Attending group interacting with peers on the unit CC: "I think I still am manic Patient was seen and evaluated by marketing writer today in the common day room. The patient reported that he was disruptive in group over the weekend. 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 He points to the blanket and then explains how it would be good for going [place] [facility] The patient was observed interacting with peers in the day room before encounter. The patient reports attending and participating in some day groups. Patient is tolerating medications without side effects. Patient reports having good appetite and sound sleep overnight. He denied suicidal and/or homicidal ideation intent or plan. Patient reports that he was rapping and developing his singing voice over the weekend. Nursing reports reveals that he was flirting with a peer on the unit. He denied having sexual contact with anyone on the unit. He changed topics and said that he doesnt masterbate because it will cause him to be backed up and he doesnt want that. According to weekend report he said that he wants the name of a sperm bank because he doesnt want to waste it. He reported feeling safe on the unit and feels that all of his needs have been addressed. He denied auditory and or visual hallucinations. Objective - Appearance Appearance: Well Developed/Nourished Dysmorphic Features: No Hygiene: Normal Grooming: Fairly Well Kept - Behavior Psychomotor Activities: Normal Exhibits Abnormal Movement: No - Attitude and Relatedness Attitude and Relatedness: Cooperative Eye Contact: Fair - Speech Quality: Pressured Latencies: Normal Quantity: Copious - Mood Patient's Decription of Mood: "Fine" - Affect Observed Affect: Constricted Affect Consistent with: Dysphoria - Thought Process Patient's Thought Process: Filght of Ideas Thought Content: No Passive Wish, No Suicidal Planning, No Homicidal Ideation, No Paranoid Ideation - Sensorium Type of Hallucinations: Visual: No, Auditory: No, Command: No - Level of Consciousness Level of Consciousness: Alert Orientation: Yes Intact, Yes Orientated to Time, Yes Orientated to Place, Yes Orientated to Person - Impulse Control Impulse Control: Impaired - Insight and Judgement Insight and Judgement: Poor - Group Participation Particating in Group Activities: Yes - Medication Management Medication Management Adherence: Yes Assessment - Assessment Merits Inpatient Hospitalization: For Immediate Safety, For Stabilization Inpatient DSM-V Dx: F31.13 Clinical Impression: 32 year old white male with a history of Bipolar I presents to the ER in a manic state following discontinuing using cannabis. He is on an involuntary MHU: Problem List - Patient Problems (1) Bipolar disorder with severe ricky Current Visit: Yes Status: Acute Priority: High Code(s): F31.13 - BIPOLAR DISORD, CRNT EPSD MANIC W/O PSYCH FEATURES, SEVERE SNOMED Code(s): 643549879 Plan - Plan Treatment Plan: Name: BENNY GONZALEZ Birthdate: 1985 [id number] AXIS I: Bipolar I, current manic phase. Nicotine use disorder, Cannabis use disorder currently in remission. Plan Involuntary admission. Expires 08/20/18. Justification for admission: Patient is manic, delusional, and lacks insight into treatment needs. Haldol and Ativan PRN orders in place. The patient continues to require inpatient admission at this time to assure safety, receive treatment and work toward stabilization. Increase lithium to 450 mg BID for mood stabilization. Other treatment options offered e.g antipsychotics and other mood stabilizers and patient refused. [place] level sub therapeutic 0.34 Continue nicotine replacement treatment for nicotine use disorder. Start simethicone 80mg Q6H PRN for gas Encourage participation in activities on the milieu. 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 Plan to discharge once patient achieves mood stabilization. The risks, benefits, and alternative treatment options were discussed as well as of the risks of refusing treatment. Treatment associated risks discussed . After this discussion and an acknowledgement of his understanding he made the decision for the current type of treatment. Continued Medication Management: Start Medication Medications: Current Medications Acetaminophen (Tylenol Tab*) 650 mg PO Q4H PRN PRN Reason: PAIN; OR TEMP > 101 Last Admin: 08/09/18 13:35 Dose: 650 mg Al Hydrox/Mg Hydrox/Simethicone (Maalox Plus*) 30 ml PO Q4H PRN PRN Reason: INDIGESTION Device (Nicotine Mouth Piece*) 1 each INH ONCE PRN PRN Reason: CRAVING Last Admin: 08/07/18 09:09 Dose: 1 each Haloperidol (Haldol Tab*) 5 mg PO Q4H PRN PRN Reason: AGITATION [place] Carbonate ([place] Carbonate Er Tab*) 450 mg PO BID [facility] Lorazepam (Ativan Tab(*)) 2 mg PO Q4H PRN PRN Reason: AGITATION Last Admin: 08/09/18 20:54 Dose: 2 mg Multivitamins/Minerals (Theragran/Minerals Tab*) 1 tab PO DAILY [facility] Last Admin: 08/10/18 08:24 Dose: 1 tab Nicotine (Nicotine Inhaler*) 10 mg INH Q2H PRN PRN Reason: CRAVING Last Admin: 08/07/18 19:01 Dose: 10 mg Nicotine Polacrilex (Nicotine Gum*) 2 mg PO Q2H PRN PRN Reason: CRAVING Last Admin: 08/10/18 10:45 Dose: 2 mg Simethicone (Mylicon Tab*) 80 mg PO Q6H PRN PRN Reason: INDIGESTION - Discharge Plan Discharge Plan: Inpatient Hospitalization
[2018-08-10] MEDS ORDERED: Mouth Piece, Nicotine* 1 EACH CARTRIDGE ONE (14:24)
[2018-08-10] MEDS: Mouth Piece, Nicotine* 1 EACH CARTRIDGE INH PRN (14:24)
[2018-08-10] MEDS: Nicotine Inhaler* 10 MG AMP INH PRN (14:25)
[2018-08-10] MEDS: Simethicone TAB* 80 MG TAB.CHEW PO PRN ×2 (14:25→20:10)
[2018-08-10] MEDS: LORazepam TAB(*) 1 MG PO PRN ×3 (16:00→23:50)
[2018-08-10] MEDS: Acetaminophen TAB* 325 MG PO PRN (20:10)
[2018-08-10] MEDS: Lithium Carbonate ER* 450 MG TAB.ER PO SCH (20:10)
[2018-08-11] MEDS: Multivitamins/Minerals TAB PO SCH (08:08)
[2018-08-11] MEDS: Simethicone TAB* 80 MG TAB.CHEW PO PRN ×2 (08:08→16:35)
[2018-08-11] MEDS: Nicotine GUM* 2 MG PO PRN ×4 (08:08→20:41)
[2018-08-11] MEDS: Lithium Carbonate ER* 450 MG TAB.ER PO SCH ×2 (08:08→08:48)
--- NOTE | 2018-08-11 08:46 | PN ---
Subjective - Subjective Date of Service: 08/11/18 Service Type: [id number] Hosp care 15 min low complexity Subjective: Nursing Report: Patient was visible on unit, requesting ativan prn. Slept overnight. Attending group interacting with peers on the unit CC: "I think I am almost ready to leave Patient was seen and evaluated by internal communications writer today in the common day room. The patient reported that he slept over night when he requested ativan. He spoke about how he lost a friend to overdose on opiate pain pills a few years ago. He reported feeling more mellow. The patient reports attending and participating in day groups. Patient is tolerating medications without side effects. He denied tremors. Patient reports having good appetite and sound sleep overnight. He denied suicidal and/or homicidal ideation intent or plan. Nursing reports reveals that he required redirection in groups. He denied auditory and or visual hallucinations. He denied people out to get him following him or out to hurt him. Objective - Appearance Dysmorphic Features: No Hygiene: Mal-odorous Grooming: Disheveled - Behavior Psychomotor Activities: Normal Exhibits Abnormal Movement: No - Attitude and Relatedness Attitude and Relatedness: Cooperative Eye Contact: Fair - Speech Quality: Pressured Latencies: Normal Quantity: Appropriate - Mood Patient's Decription of Mood: "Fine" - Affect Observed Affect: Constricted Affect Consistent with: Euphoria - Thought Process Patient's Thought Process: Coherent Thought Content: No Passive Wish, No Suicidal Planning, No Homicidal Ideation, No Paranoid Ideation - Sensorium Experiencing Hallucinations: No, Sensorium is Clear Type of Hallucinations: Visual: No, Auditory: No, Command: No - Level of Consciousness Level of Consciousness: Alert Orientation: Yes Intact, Yes Orientated to Time, Yes Orientated to Place, Yes Orientated to Person - Impulse Control Impulse Control: Intact - Insight and Judgement Insight and Judgement: Fair - Group Participation Particating in Group Activities: Yes - Medication Management Medication Management Adherence: Yes Assessment - Assessment Merits Inpatient Hospitalization: For Stabilization Inpatient DSM-V Dx: F31.13 Clinical Impression: 32 year old white male with a history of Bipolar I presents to the ER in a manic state following discontinuing using cannabis. He has been compliant with treatment and is working toward mood stabilization. MHU: Problem List - Patient Problems (1) Bipolar disorder with severe ricky Current Visit: Yes Status: Acute Priority: High Code(s): F31.13 - BIPOLAR DISORD, CRNT EPSD MANIC W/O PSYCH FEATURES, SEVERE SNOMED Code(s): 512505739 Plan - Plan Treatment Plan: Name: BENNY GONZALEZ Birthdate: 1985 [id number] AXIS I: Bipolar I, current manic phase. Nicotine use disorder, Cannabis use disorder currently in remission. Plan Involuntary admission. 9.39 Expires 08/20/18. Justification for admission: Patient is manic, delusional, and lacks insight into treatment needs. Haldol and Ativan PRN orders in place. The patient continues to require inpatient admission at this time to assure safety, receive treatment and work toward stabilization. Increase lithium to 450 mg PO daily and 600mg qhs for mood stabilization. Patient refused wanting to take anti-psychotic class of medication [place] level sub therapeutic 0.34 will redraw on 08/12/18 @600am. Continue nicotine replacement treatment for nicotine use disorder. Continue simethicone 80mg Q6H PRN for gas Staff pass Encourage participation in activities on the milieu. 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 Plan to discharge once patient achieves mood stabilization tentatively Friday or . The risks, benefits, and alternative treatment options were discussed as well as of the risks of refusing treatment. Treatment associated risks discussed . After this discussion and an acknowledgement of his understanding he made the decision for the current type of treatment. Medications: Current Medications Acetaminophen (Tylenol Tab*) 650 mg PO Q4H PRN PRN Reason: PAIN; OR TEMP > 101 Last Admin: 08/10/18 20:10 Dose: 650 mg Al Hydrox/Mg Hydrox/Simethicone (Maalox Plus*) 30 ml PO Q4H PRN PRN Reason: INDIGESTION Device (Nicotine Mouth Piece*) 1 each INH ONCE PRN PRN Reason: CRAVING Last Admin: 08/10/18 14:24 Dose: 1 each Haloperidol (Haldol Tab*) 5 mg PO Q4H PRN PRN Reason: AGITATION [place] Carbonate ([place] Carbonate Er Tab*) 450 mg PO DAILY ASHLEY [place] Carbonate ([place] Carbonate Er Tab*) 600 mg PO BEDTIME ASHLEY Lorazepam (Ativan Tab(*)) 2 mg PO Q4H PRN PRN Reason: AGITATION Last Admin: 08/10/18 23:50 Dose: 2 mg Multivitamins/Minerals (Theragran/Minerals Tab*) 1 tab PO DAILY ASHLEY Last Admin: 08/11/18 08:08 Dose: 1 tab Nicotine (Nicotine Inhaler*) 10 mg INH Q2H PRN PRN Reason: CRAVING Last Admin: 08/10/18 14:25 Dose: 10 mg Nicotine Polacrilex (Nicotine Gum*) 2 mg PO Q2H PRN PRN Reason: CRAVING Last Admin: 08/11/18 08:08 Dose: 2 mg Simethicone (Mylicon Tab*) 80 mg PO Q6H PRN PRN Reason: INDIGESTION Last Admin: 08/11/18 08:08 Dose: 80 mg
--- NOTE | 2018-08-11 11:31 | PN ---
MHU: Group Therapy Note - Service Type Service Type: [id number] Group Psychotherapy - Cognitive Behavioral Group Therapy ( CBT):Patient presented in CBT programming as disorganized and disruptive in discussion and needed repeated redirection to attend to presented materials.
[2018-08-11] MEDS: Acetaminophen TAB* 325 MG PO PRN ×2 (11:34→20:40)
[2018-08-11] MEDS: Lithium Carbonate ER (NF) 300 MG TAB.ER PO SCH (20:39)
[2018-08-12] MEDS: LORazepam TAB(*) 1 MG PO PRN ×4 (00:30→22:13)
[2018-08-12] MEDS: Nicotine GUM* 2 MG PO PRN ×5 (00:30→20:20)
[2018-08-12] MEDS: Multivitamins/Minerals TAB PO SCH (08:27)
[2018-08-12] MEDS: Lithium Carbonate ER* 450 MG TAB.ER PO SCH (08:27)
[2018-08-12] MEDS: Simethicone TAB* 80 MG TAB.CHEW PO PRN ×2 (08:29→20:16)
--- NOTE | 2018-08-12 11:50 | PN ---
Subjective - Subjective Date of Service: 08/12/18 Service Type: [id number] Hosp care 15 min low complexity Subjective: Nursing Report: Patient was visible on unit, requesting ativan prn. Slept overnight. Disruptive in group. CC: "I feel more mellow Patient was seen and evaluated by auto service writer today in the common day room. He reported feeling more mellow. When asked what he meant by that he said " I feel more chill." He provided permission to speak with his mother and signed a release form. His mother was called for collateral and stated that his behavior has been unusual from what she knows of him. She reported that he has been more talkative and disorganized than usual. He spoke to his mother after this conversation and began screaming at her and yelling. He then later retracted his permission for providers to speak with his mother. Patient is tolerating medications without side effects. He denied tremors. Patient reports having good appetite and sound sleep overnight. He denied suicidal and/or homicidal ideation intent or plan. His group theme for the session was to not fart. Nursing report indicated that he was disruptive in group and had to leave. Objective - Appearance Appearance: Healthy Appearing Dysmorphic Features: No Hygiene: Mal-odorous Grooming: Fairly Well Kept - Behavior Psychomotor Activities: Normal Exhibits Abnormal Movement: No - Attitude and Relatedness Attitude and Relatedness: Irritable Eye Contact: Fair - Speech Quality: Pressured Latencies: Short Quantity: Copious - Mood Patient's Decription of Mood: "Fine" - Affect Observed Affect: Tense Affect Consistent with: Euphoria - Thought Process Patient's Thought Process: Filght of Ideas Thought Content: No Passive Wish, No Suicidal Planning, No Homicidal Ideation, No Paranoid Ideation - Sensorium Experiencing Hallucinations: No, Sensorium is Clear Type of Hallucinations: Visual: No, Auditory: No, Command: No - Level of Consciousness Level of Consciousness: Alert Orientation: Yes Intact, Yes Orientated to Time, Yes Orientated to Place, Yes Orientated to Person - Impulse Control Impulse Control: Impaired - Insight and Judgement Insight and Judgement: Poor - Group Participation Particating in Group Activities: No - Medication Management Medication Management Adherence: Yes Assessment - Assessment Merits Inpatient Hospitalization: For Stabilization Inpatient DSM-V Dx: F31.13 Clinical Impression: 32 year old white male with a history of Bipolar I presents to the ER in a manic state following discontinuing using cannabis. He has been compliant with treatment and is working toward mood stabilization. Continues to be disruptive on the unit. MHU: Problem List - Patient Problems (1) Bipolar disorder with severe ricky Current Visit: Yes Status: Acute Priority: High Code(s): F31.13 - BIPOLAR DISORD, CRNT EPSD MANIC W/O PSYCH FEATURES, SEVERE SNOMED Code(s): 327512947 Plan - Plan Treatment Plan: Name: BENNY GONZALEZ Birthdate: 1985 [id number] AXIS I: Bipolar I, current manic phase. Nicotine use disorder, Cannabis use disorder currently in remission. Plan Involuntary admission. 9.39 Expires 08/20/18. Justification for admission: Patient continues to be manic manic, low frustration tolerance, is delusional, and lacks insight into treatment needs. Haldol and Ativan PRN orders in place. The patient continues to require inpatient admission at this time to assure safety, receive treatment and work toward stabilization. His mother Haley was contacted [phone] for collateral, stated that his current behavior is a deviation from his baseline. Patient later retracted permission to speak to his mother. Continue lithium to 450 mg PO daily and 600mg qhs for mood stabilization. [place] level sub therapeutic 0.42 Continue nicotine replacement treatment for nicotine use disorder. Continue simethicone 80mg Q6H PRN for gas Encourage participation in activities on the milieu. 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 Plan to discharge once patient achieves mood stabilization tentatively Friday if patients behavior is consistent with his baseline . The risks, benefits, and alternative treatment options were discussed as well as of the risks of refusing treatment. Treatment associated risks discussed . After this discussion and an acknowledgement of his understanding he made the decision for the current type of treatment. Continued Medication Management: Continue Outpt Medication Medications: Current Medications Acetaminophen (Tylenol Tab*) 650 mg PO Q4H PRN PRN Reason: PAIN; OR TEMP > 101 Last Admin: 08/11/18 20:40 Dose: 650 mg Al Hydrox/Mg Hydrox/Simethicone (Maalox Plus*) 30 ml PO Q4H PRN PRN Reason: INDIGESTION Device (Nicotine Mouth Piece*) 1 each INH ONCE PRN PRN Reason: CRAVING Last Admin: 08/10/18 14:24 Dose: 1 each Haloperidol (Haldol Tab*) 5 mg PO Q4H PRN PRN Reason: AGITATION [place] Carbonate ([place] Carbonate Er Tab*) 450 mg PO DAILY [facility] Last Admin: 08/12/18 08:27 Dose: 450 mg [place] Carbonate ([place] Carbonate Er (Nf)) 600 mg PO BEDTIME [facility] Last Admin: 08/11/18 20:39 Dose: 600 mg Lorazepam (Ativan Tab(*)) 2 mg PO Q4H PRN PRN Reason: AGITATION Last Admin: 08/12/18 08:27 Dose: 2 mg Multivitamins/Minerals (Theragran/Minerals Tab*) 1 tab PO DAILY [facility] Last Admin: 08/12/18 08:27 Dose: 1 tab Nicotine (Nicotine Inhaler*) 10 mg INH Q2H PRN PRN Reason: CRAVING Last Admin: 08/10/18 14:25 Dose: 10 mg Nicotine Polacrilex (Nicotine Gum*) 2 mg PO Q2H PRN PRN Reason: CRAVING Last Admin: 08/12/18 11:32 Dose: 2 mg Simethicone (Mylicon Tab*) 80 mg PO Q6H PRN PRN Reason: INDIGESTION Last Admin: 08/12/18 08:29 Dose: 80 mg - Discharge Plan Discharge Plan: Inpatient Hospitalization
[2018-08-12] MEDS: Acetaminophen TAB* 325 MG PO PRN ×2 (13:07→20:17)
[2018-08-12] MEDS: Lithium Carbonate ER (NF) 300 MG TAB.ER PO SCH (20:16)
[2018-08-13] MEDS: Lithium Carbonate ER* 450 MG TAB.ER PO SCH (07:56)
[2018-08-13] MEDS: Multivitamins/Minerals TAB PO SCH (07:56)
[2018-08-13] MEDS: Nicotine GUM* 2 MG PO PRN ×3 (10:18→20:01)
[2018-08-13] MEDS: Simethicone TAB* 80 MG TAB.CHEW PO PRN (10:18)
--- NOTE | 2018-08-13 11:35 | PN ---
MHU: Group Therapy Note - Service Type Service Type: [id number] Group Psychotherapy - Cognitive Behavioral Therapy (CBT): Patient presents with high volume of speech that impresses as being coherent within the context of self-report, but is tangential and off topic in group context. Concerns regarding disorganization of thought are apparent.
--- NOTE | 2018-08-13 12:03 | PN ---
Subjective - Subjective Date of Service: 08/13/18 Service Type: [id number] Hosp care 15 min low complexity Subjective: Nursing Report: Patient was visible on unit, Slept overnight. Disruptive and disorganized on the milieu and in group. CC: "My mom doesnt know when I am ready to go Patient was seen and evaluated by brief writer today in the common day room. The patient reported that he slept over night when he requested ativan. He spoke about how it is hard for him to maintain focus in group when "all the women here are so beautiful." . He reported that his mother has her own agenda for thinking that he is not ready to go home. The patient reports attending and participating in day groups. Patient is tolerating medications without side effects. He denied tremors. Patient reports having good appetite and sound sleep overnight. He denied suicidal and/or homicidal ideation intent or plan. He denied auditory and/ or visual hallucinations. He denied people out to get him following him or out to hurt him.Group reports reveal that he required redirection in group. Patient complains of razor rash on neck. Objective - Appearance Appearance: Healthy Appearing Dysmorphic Features: No Hygiene: Normal Grooming: Fairly Well Kept - Behavior Psychomotor Activities: Normal Exhibits Abnormal Movement: No - Attitude and Relatedness Attitude and Relatedness: Cooperative Eye Contact: Fair - Speech Quality: Unpressured Latencies: Normal Quantity: Appropriate - Mood Patient's Decription of Mood: "Fine" - Affect Observed Affect: Constricted Affect Consistent with: Euphoria - Thought Process Patient's Thought Process: Disorganized Thought Content: No Passive Wish, No Suicidal Planning, No Homicidal Ideation, No Paranoid Ideation - Sensorium Experiencing Hallucinations: No, Sensorium is Clear Type of Hallucinations: Visual: No, Auditory: No, Command: No - Level of Consciousness Level of Consciousness: Alert Orientation: Yes Intact, Yes Orientated to Time, Yes Orientated to Place, Yes Orientated to Person - Impulse Control Impulse Control: Poor - Insight and Judgement Insight and Judgement: Poor - Group Participation Particating in Group Activities: No - Medication Management Medication Management Adherence: Yes Assessment - Assessment Inpatient DSM-V Dx: F31.13 Clinical Impression: 32 year old white male with a history of Bipolar I presents to the ER in a manic state following discontinuing using cannabis. He has been compliant with treatment and is working toward mood stabilization. Continues to be disruptive on the unit. MHU: Problem List - Patient Problems (1) Bipolar disorder with severe ricky Current Visit: Yes Status: Acute Priority: High Code(s): F31.13 - BIPOLAR DISORD, CRNT EPSD MANIC W/O PSYCH FEATURES, SEVERE SNOMED Code(s): 832811772 Plan - Plan Treatment Plan: Name: BENNY GONZALEZ Birthdate: 1985 [id number] AXIS I: Bipolar I, current manic phase. Nicotine use disorder, Cannabis use disorder currently in remission. Plan Involuntary admission. 9.39 Expires 08/20/18. Justification for admission: Patient continues to be manic low frustration tolerance, is delusional, and is unable to attend to his own treatment needs. Haldol and Ativan PRN orders in place. Start Benadryl 50mg PO qhs PRN for sleep The patient continues to require inpatient admission at this time to assure safety, receive treatment and work toward stabilization. Patient retracted permission to speak to his mother. Continue lithium to 450 mg PO daily and 600mg qhs for mood stabilization. Most recent 08/12/18 [place] level sub therapeutic 0.42 Continue nicotine replacement treatment for nicotine use disorder. Continue simethicone 80mg Q6H PRN for gas Apply Bacitracin BID for razor rash Encourage participation in activities on the milieu. Disposition- Can return home to live with mother. Plan to discharge once patient achieves mood stabilization. Patient continues to be disruptive and disorganized. The risks, benefits, and alternative treatment options were discussed as well as of the risks of refusing treatment. Treatment associated risks discussed . After this discussion and an acknowledgement of his understanding he made the decision for the current type of treatment. Continued Medication Management: Continue Outpt Medication Medications: Current Medications Acetaminophen (Tylenol Tab*) 650 mg PO Q4H PRN PRN Reason: PAIN; OR TEMP > 101 Last Admin: 08/12/18 20:17 Dose: 650 mg Al Hydrox/Mg Hydrox/Simethicone (Maalox Plus*) 30 ml PO Q4H PRN PRN Reason: INDIGESTION Device (Nicotine Mouth Piece*) 1 each INH ONCE PRN PRN Reason: CRAVING Last Admin: 08/10/18 14:24 Dose: 1 each Haloperidol (Haldol Tab*) 5 mg PO Q4H PRN PRN Reason: AGITATION [place] Carbonate ([place] Carbonate Er Tab*) 450 mg PO DAILY [facility] Last Admin: 08/13/18 07:56 Dose: 450 mg [place] Carbonate ([place] Carbonate Er (Nf)) 600 mg PO BEDTIME [facility] Last Admin: 08/12/18 20:16 Dose: 600 mg Lorazepam (Ativan Tab(*)) 2 mg PO Q4H PRN PRN Reason: AGITATION Last Admin: 08/12/18 22:13 Dose: 2 mg Multivitamins/Minerals (Theragran/Minerals Tab*) 1 tab PO DAILY [facility] Last Admin: 08/13/18 07:56 Dose: 1 tab Nicotine (Nicotine Inhaler*) 10 mg INH Q2H PRN PRN Reason: CRAVING Last Admin: 08/10/18 14:25 Dose: 10 mg Nicotine Polacrilex (Nicotine Gum*) 2 mg PO Q2H PRN PRN Reason: CRAVING Last Admin: 08/13/18 10:18 Dose: 2 mg Simethicone (Mylicon Tab*) 80 mg PO Q6H PRN PRN Reason: INDIGESTION Last Admin: 08/13/18 10:18 Dose: 80 mg - Discharge Plan Discharge Plan: Inpatient Hospitalization
[2018-08-13] MEDS ORDERED: diPHENhydraMINE PO* 50 MG PO PRN (12:13)
[2018-08-13] MEDS: Bacitracin OINTMENT* 0.5% 0.5 oz TUBE TOPICAL PRN ×2 (13:18→21:33)
[2018-08-13] MEDS: LORazepam TAB(*) 1 MG PO PRN (15:31)
[2018-08-13] MEDS: Acetaminophen TAB* 325 MG PO PRN (19:59)
[2018-08-13] MEDS: Lithium Carbonate ER (NF) 300 MG TAB.ER PO SCH (20:00)
[2018-08-14] MEDS: Multivitamins/Minerals TAB PO SCH (08:06)
[2018-08-14] MEDS: Simethicone TAB* 80 MG TAB.CHEW PO PRN (08:06)
[2018-08-14] MEDS: Lithium Carbonate ER* 450 MG TAB.ER PO SCH (08:06)
[2018-08-14] MEDS: Bacitracin OINTMENT* 0.5% 0.5 oz TUBE TOPICAL PRN (08:07)
[2018-08-14] MEDS: Nicotine GUM* 2 MG PO PRN ×3 (08:32→18:54)
--- NOTE | 2018-08-14 11:10 | PN ---
Subjective - Subjective Date of Service: 08/14/18 Service Type: [id number] Hosp care 25 min moderate complexity Subjective: Nursing Report: Patient was visible on unit, unable to sleep overnight Disruptive and disorganized in group. CC: "I want to be in the [employer] again Patient was seen and evaluated by insurance writer today in the comfort room. He was seen interacting with peers rapping music. The patient reported that he couldnt sleep over night. He spoke about how it is hard for him to maintain focus and said the only way to get it together is to be alone . H The patient reports attending and participating in day groups but doesnt last the entire time. Patient is tolerating medications without side effects. He denied tremors. Patient reports having good appetite. He denied suicidal and/or homicidal ideation intent or plan. He denied auditory and/ or visual hallucinations. He denied people out to get him following him or out to hurt him. Objective - Appearance Appearance: Healthy Appearing Dysmorphic Features: No Hygiene: Normal Grooming: Fairly Well Kept - Behavior Psychomotor Activities: Normal Exhibits Abnormal Movement: No - Attitude and Relatedness Attitude and Relatedness: Minimally Cooperative Eye Contact: Fair - Speech Quality: Unpressured Latencies: Normal Quantity: Appropriate - Mood Patient's Decription of Mood: "Fine" - Affect Observed Affect: Non-labile Affect Consistent with: Euphoria - Thought Process Patient's Thought Process: Disorganized Thought Content: No Passive Wish, No Suicidal Planning, No Homicidal Ideation, No Paranoid Ideation - Sensorium Experiencing Hallucinations: No, Sensorium is Clear Type of Hallucinations: Visual: No, Auditory: No, Command: No - Level of Consciousness Level of Consciousness: Alert Orientation: Yes Intact, Yes Orientated to Time, Yes Orientated to Place, Yes Orientated to Person - Impulse Control Impulse Control: Impaired - Insight and Judgement Insight and Judgement: Poor - Group Participation Particating in Group Activities: No - Medication Management Medication Management Adherence: Yes Assessment - Assessment Inpatient DSM-V Dx: F31.13 Clinical Impression: 32 year old white male with a history of Bipolar I presents to the ER in a manic state following discontinuing using cannabis. He has been compliant with treatment and is working toward mood stabilization. Continues to be disruptive and disorganized in group. MHU: Problem List - Patient Problems (1) Bipolar disorder with severe ricky Current Visit: Yes Status: Acute Priority: High Code(s): F31.13 - BIPOLAR DISORD, CRNT EPSD MANIC W/O PSYCH FEATURES, SEVERE SNOMED Code(s): 742790594 Plan - Plan Treatment Plan: Name: BENNY GONZALEZ Birthdate: 1985 [id number] AXIS I: Bipolar I, current manic phase. Nicotine use disorder, Cannabis use disorder currently in remission. Plan Involuntary admission. 9.39 Expires 08/20/18. Justification for admission: Patient continues to be manic low frustration tolerance, is delusional, and is unable to attend to his own treatment needs. Haldol and Ativan PRN orders in place. Continue Benadryl 50mg PO qhs PRN for sleep The patient continues to require inpatient admission at this time to assure safety, receive treatment and work toward stabilization. Patient retracted permission to speak to his mother. Increase lithium to 600mg BID for mood stabilization. [place] level to be drawn on Friday Start Abilify 5mg daily Continue nicotine replacement treatment for nicotine use disorder. Continue simethicone 80mg Q6H PRN for gas Apply Bacitracin BID for razor rash AIMS 0 Encourage participation in activities on the milieu. Disposition- Can return home to live with mother. Plan to be discharge once patient achieves mood stabilization. Patient continues to be disruptive and disorganized. The risks, benefits, and alternative treatment options were discussed as well as of the risks of refusing treatment. Treatment associated risks discussed . After this discussion and an acknowledgement of his understanding he made the decision for the current type of treatment. Continued Medication Management: Start Medication Medications: Current Medications Acetaminophen (Tylenol Tab*) 650 mg PO Q4H PRN PRN Reason: PAIN; OR TEMP > 101 Last Admin: 08/13/18 19:59 Dose: 650 mg Al Hydrox/Mg Hydrox/Simethicone (Maalox Plus*) 30 ml PO Q4H PRN PRN Reason: INDIGESTION Aripiprazole (Abilify Tab*) 5 mg PO DAILY ASHLEY Bacitracin (Bacitracin Ointment*) 1 applic TOPICAL BID PRN PRN Reason: RASH Last Admin: 08/14/18 08:07 Dose: 1 applic Device (Nicotine Mouth Piece*) 1 each INH ONCE PRN PRN Reason: CRAVING Last Admin: 08/10/18 14:24 Dose: 1 each Diphenhydramine HCl (Benadryl Po*) 50 mg PO BEDTIME PRN PRN Reason: INSOMNIA Last Admin: 08/13/18 20:00 Dose: 50 mg Haloperidol (Haldol Tab*) 5 mg PO Q4H PRN PRN Reason: AGITATION [place] Carbonate ([place] Carbonate Er (Nf)) 600 mg PO BEDTIME ASHLEY Last Admin: 08/13/18 20:00 Dose: 600 mg [place] Carbonate ([place] Carbonate Er (Nf)) 600 mg PO DAILY ASHLEY Lorazepam (Ativan Tab(*)) 2 mg PO Q4H PRN PRN Reason: AGITATION Last Admin: 08/13/18 15:31 Dose: 2 mg Multivitamins/Minerals (Theragran/Minerals Tab*) 1 tab PO DAILY ASHLEY Last Admin: 08/14/18 08:06 Dose: 1 tab Nicotine (Nicotine Inhaler*) 10 mg INH Q2H PRN PRN Reason: CRAVING Last Admin: 08/10/18 14:25 Dose: 10 mg Nicotine Polacrilex (Nicotine Gum*) 2 mg PO Q2H PRN PRN Reason: CRAVING Last Admin: 08/14/18 08:32 Dose: 2 mg Simethicone (Mylicon Tab*) 80 mg PO Q6H PRN PRN Reason: INDIGESTION Last Admin: 08/14/18 08:06 Dose: 80 mg - Discharge Plan Discharge Plan: Inpatient Hospitalization
[2018-08-14] MEDS: ARIPiprazole TAB* 5 MG PO SCH (11:23)
--- NOTE | 2018-08-14 13:14 | PN ---
MHU: Group Therapy Note - Service Type Service Type: [id number] Group Psychotherapy - Cognitive Behavioral Group Therapy ( CBT):Patient presented in CBT programming as disorganized and disruptive in discussion and needed repeated redirection to attend to presented materials.
[2018-08-14] MEDS: Acetaminophen TAB* 325 MG PO PRN ×2 (13:43→18:56)
[2018-08-14] MEDS: Nicotine Inhaler* 10 MG AMP INH PRN (18:54)
[2018-08-14] MEDS: Lithium Carbonate ER (NF) 300 MG TAB.ER PO SCH (22:09)
[2018-08-15] MEDS: Acetaminophen TAB* 325 MG PO PRN ×4 (01:08→21:09)
[2018-08-15] MEDS: Nicotine GUM* 2 MG PO PRN ×3 (01:08→11:28)
[2018-08-15] MEDS: LORazepam TAB(*) 1 MG PO PRN ×2 (01:08→21:09)
[2018-08-15] MEDS: CMC:Lithium Carbonate ER (NF) 300 MG TAB.ER PO SCH (08:00)
[2018-08-15] MEDS: Multivitamins/Minerals TAB PO SCH (08:00)
[2018-08-15] MEDS: ARIPiprazole TAB* 5 MG PO SCH (08:00)
[2018-08-15] MEDS: Haloperidol TAB* 5 MG PO PRN (15:39)
[2018-08-15] MEDS: Bacitracin OINTMENT* 0.5% 0.5 oz TUBE TOPICAL PRN (15:40)
[2018-08-15] MEDS: Lithium Carbonate ER (NF) 300 MG TAB.ER PO SCH (21:08)
[2018-08-16] MEDS: Acetaminophen TAB* 325 MG PO PRN ×3 (02:45→15:48)
[2018-08-16] MEDS: Nicotine GUM* 2 MG PO PRN ×2 (08:01→11:52)
[2018-08-16] MEDS: ARIPiprazole TAB* 5 MG PO SCH (08:01)
[2018-08-16] MEDS: Multivitamins/Minerals TAB PO SCH (08:01)
[2018-08-16] MEDS: CMC:Lithium Carbonate ER (NF) 300 MG TAB.ER PO SCH (10:12)
[2018-08-16] MEDS: Benzocaine/Menthol LOZ* 1 LOZENGE PO PRN ×2 (11:52→18:23)
[2018-08-16] MEDS: Saline NASAL SPRAY 0.65%* BTL BOTH NARES PRN (15:37)
[2018-08-16] MEDS: Haloperidol TAB* 5 MG PO PRN (15:48)
[2018-08-16] MEDS: Nicotine Inhaler* 10 MG AMP INH PRN (15:48)
[2018-08-16] MEDS: LORazepam TAB(*) 1 MG PO PRN (18:22)
[2018-08-16] MEDS: Lithium Carbonate ER (NF) 300 MG TAB.ER PO SCH (21:37)
[2018-08-17] MEDS: Multivitamins/Minerals TAB PO SCH (09:49)
[2018-08-17] MEDS: Acetaminophen TAB* 325 MG PO PRN ×3 (09:49→20:44)
[2018-08-17] MEDS: ARIPiprazole TAB* 5 MG PO SCH (09:50)
[2018-08-17] MEDS: Saline NASAL SPRAY 0.65%* BTL BOTH NARES PRN (09:50)
[2018-08-17] MEDS: Benzocaine/Menthol LOZ* 1 LOZENGE PO PRN ×2 (09:50→17:44)
[2018-08-17] MEDS: CMC:Lithium Carbonate ER (NF) 300 MG TAB.ER PO SCH (09:51)
--- NOTE | 2018-08-17 10:51 | PN ---
Subjective - Subjective Date of Service: 08/17/18 Service Type: 77908 Hosp care 25 min moderate complexity Subjective: Nursing Report: Patient was visible on unit, in and out of groups, less disruptive on the milieu . CC: "I feel better Patient was seen and evaluated by creative services writer today in the comfort room. He was seen interacting with peers. The patient reported that he might benefit from seroquel again because it helped him sleep. He requested haldol and ativan yesterday. He is looking forward to seeing his dog and going back to work. Family meeting was held today with his mother. His mother reported that he is back to the Hima I know." Patient is tolerating medications without side effects. He denied tremors. Patient reports having good appetite. He denied suicidal and/or homicidal ideation intent or plan. He denied auditory and/ or visual hallucinations. He denied people out to get him following him or out to hurt him. Objective - Appearance Appearance: Healthy Appearing Dysmorphic Features: No Hygiene: Normal Grooming: Fairly Well Kept - Behavior Exhibits Abnormal Movement: No - Attitude and Relatedness Attitude and Relatedness: Cooperative Eye Contact: Fair - Speech Latencies: Normal - Mood Patient's Decription of Mood: "Fine" - Affect Observed Affect: Good Affect Consistent with: Euthymia - Thought Process Patient's Thought Process: Coherent Thought Content: No Passive Wish, No Suicidal Planning, No Homicidal Ideation, No Paranoid Ideation - Sensorium Experiencing Hallucinations: No, Sensorium is Clear Type of Hallucinations: Visual: No, Auditory: No, Command: No - Level of Consciousness Level of Consciousness: Alert Orientation: Yes Intact, Yes Orientated to Time, Yes Orientated to Place, Yes Orientated to Person - Impulse Control Impulse Control: Intact - Insight and Judgement Insight and Judgement: Fair - Group Participation Particating in Group Activities: Yes - Medication Management Medication Management Adherence: Yes Assessment - Assessment Inpatient DSM-V Dx: F31.13 Clinical Impression: 32 year old white male with a history of Bipolar I presents to the ER in a manic state following discontinuing using cannabis. He has been compliant with treatment and is working toward mood stabilization. Shows improvement closer to his baseline. MHU: Problem List - Patient Problems (1) Bipolar disorder with severe ricky Current Visit: Yes Status: Acute Priority: High Code(s): F31.13 - BIPOLAR DISORD, CRNT EPSD MANIC W/O PSYCH FEATURES, SEVERE SNOMED Code(s): 712930118 Plan - Plan Treatment Plan: Name: HIMA GONZALEZ Birthdate: 1985 [id number] AXIS I: Bipolar I, current manic phase. Nicotine use disorder, Cannabis use disorder currently in remission. Plan Involuntary admission. 9.39 Expires 08/20/18. Justification for admission: Patient continues to be manic low frustration tolerance, is delusional, and is unable to attend to his own treatment needs. The patient continues to require inpatient admission at this time to assure safety, receive treatment and work toward stabilization. Haldol and Ativan PRN orders in place. Continue Benadryl 50mg PO qhs PRN for sleep Continue lithium to 600mg BID for mood stabilization. [place] level 0.61 D/C Abilify Start seroquel 100mg qhs. Continue nicotine replacement treatment for nicotine use disorder. Continue simethicone 80mg Q6H PRN for gas Apply Bacitracin BID for razor rash AIMS 0 Encourage participation in activities on the milieu. Disposition- Can return home to live with mother. Plan to be discharged tomorrow. The risks, benefits, and alternative treatment options were discussed as well as of the risks of refusing treatment. Treatment associated risks discussed . After this discussion and an acknowledgement of his understanding he made the decision for the current type of treatment. He denied diabetes or Family history. Continued Medication Management: Continue Outpt Medication Medications: Current Medications Acetaminophen (Tylenol Tab*) 650 mg PO Q4H PRN PRN Reason: PAIN; OR TEMP > 101 Last Admin: 08/17/18 09:49 Dose: 650 mg Al Hydrox/Mg Hydrox/Simethicone (Maalox Plus*) 30 ml PO Q4H PRN PRN Reason: INDIGESTION Bacitracin (Bacitracin Ointment*) 1 applic TOPICAL BID PRN PRN Reason: RASH Last Admin: 08/15/18 15:40 Dose: 1 applic Device (Nicotine Mouth Piece*) 1 each INH ONCE PRN PRN Reason: CRAVING Last Admin: 08/10/18 14:24 Dose: 1 each Diphenhydramine HCl (Benadryl Po*) 50 mg PO BEDTIME PRN PRN Reason: INSOMNIA Last Admin: 08/13/18 20:00 Dose: 50 mg Haloperidol (Haldol Tab*) 5 mg PO Q4H PRN PRN Reason: AGITATION Last Admin: 08/16/18 15:48 Dose: [address] [place] Carbonate ([place] Carbonate Er (Nf)) 600 mg PO BEDTIME ASHLEY Last Admin: 08/16/18 21:37 Dose: [address] [place] Carbonate ([place] Carbonate Er (Nf)) 600 mg PO DAILY ASHLEY Last Admin: 08/17/18 09:51 Dose: 600 mg Lorazepam (Ativan Tab(*)) 2 mg PO Q4H PRN PRN Reason: AGITATION Last Admin: 08/16/18 18:22 Dose: 2 mg Multivitamins/Minerals (Theragran/Minerals Tab*) 1 tab PO DAILY ASHLEY Last Admin: 08/17/18 09:49 Dose: 1 tab Nicotine (Nicotine Inhaler*) 10 mg INH Q2H PRN PRN Reason: CRAVING Last Admin: 08/16/18 15:48 Dose: 10 mg Nicotine Polacrilex (Nicotine Gum*) 2 mg PO Q2H PRN PRN Reason: CRAVING Last Admin: 08/16/18 11:52 Dose: 2 mg Quetiapine Fumarate (Seroquel Tab*) 100 mg PO BEDTIME ASHLEY Simethicone (Mylicon Tab*) 80 mg PO Q6H PRN PRN Reason: INDIGESTION Last Admin: 08/14/18 08:06 Dose: 80 mg Sodium Chloride (Sodium Chloride 0.65% Nasal [place]*) 2 spray BOTH NARES Q2H PRN PRN Reason: NASAL DRYNESS Last Admin: 08/17/18 09:50 Dose: 2 spray Throat Lozenges (Chloraseptic Emilia*) 1 emilia PO Q6H PRN PRN Reason: COUGH Last Admin: 08/17/18 09:50 Dose: 1 emilia - Discharge Plan Discharge Plan: Inpatient Hospitalization
[2018-08-17] MEDS: Simethicone TAB* 80 MG TAB.CHEW PO PRN (12:27)
[2018-08-17] MEDS: Lithium Carbonate ER (NF) 300 MG TAB.ER PO SCH (20:43)
[2018-08-17] MEDS ORDERED: QUEtiapine TAB* 100 MG PO SCH (21:00)
[2018-08-18] MEDS: Nicotine Inhaler* 10 MG AMP INH PRN (06:13)
[2018-08-18] MEDS: Nicotine GUM* 2 MG PO PRN ×2 (06:13→15:33)
[2018-08-18 08:41] VITALS: BP 123/72
[2018-08-18] MEDS: Multivitamins/Minerals TAB PO SCH (08:50)
[2018-08-18] MEDS: CMC:Lithium Carbonate ER (NF) 300 MG TAB.ER PO SCH (08:50)
[2018-08-18] MEDS: Acetaminophen TAB* 325 MG PO PRN ×3 (08:50→18:26)
--- NOTE | 2018-08-18 11:22 | DS ---
Subjective - Subjective Service Types: 90735 [facility] Day Mgmt complex over 30 min Discharge Date: 08/18/18 Subjective: Nursing Report: Patient was visible on unit, slept over night , able to follow direction . CC: "I am ready Patient was seen and evaluated by advertising writer today in the day room. He was seen interacting with peers. The patient reported that he is ready to go home and looks forward to seeing his dog. He said that he benefited from seroquel because it helped him sleep. No overnight incidents according to staff. Patient is tolerating medications without side effects. He denied tremors. He denied suicidal and/or homicidal ideation intent or plan. He denied auditory and/ or visual hallucinations. He denied people out to get him following him or out to hurt him. He feels safe on the unit. He reported having adequate appetite. Admission HPI CC "I am manic HPI 32 year old white single male with past history of bipolar disorder presented to the Emergency room with his mother. He reported that he added 5000 facebook friends last night and has been up for the last 2 days. Because I am manic. I want to be a falken, its where I luciano with birds who go fetch my meals. He reported that he goes on facebook all day and night and sends messages to everyone he knows. He said that he wishes to go out in the [place] all day and night to hike. He reports not eating much recently I dont have a appetite. He denied suicidal ideation, intent or plan. He denied homicidal ideation intent or plan. He reports that the last time he used cannabis was July 17. He reports since stopping using cannabis he can walk far distances and spend unlimited time hiking outdoors. Bipolar He reported feeling irritable most of the time while having an persistent abundance of energy most of the day without the use of energy drinks, stimulants , or recreational drug use. He reported having the decreased need to sleep, and a prolonged elevated heighted mood . he reported racing thoughts about how he is going to be a famous plant botanist. MDD He reported in the past having feelings of low self worth , feeling empty inside , with feelings of hopelessness .He reported unintentional weight loss and lack of appetite . He has trouble staying asleep and wakes up during the night. He in the past reported prolonged periods of low levels of energy, concentration, and difficulty initiating and completing tasks. Psychosis He denied hearing things that other people do not hear or seeing things other people do not see. He denied feeling that the TV is making references. He said that he is trustful of others and feels safe on the unit. The patient denied auditory and/ or visual hallucinations. Anxiety He denied having symptoms of anxiety. He denied worrying most of the day and denied panic attacks. PTSD He denied flashbacks or recurrent nightmares or avoidance. PAST PSYCHIATRIC HISTORY: History of Bipolar disorder 1st admission: 1 past hospitalizations in 2009 to [facility] for 10 days for synthetic cannabis induced psychosis History of past suicide/homicide attempts : Denied past suicide attempts. He denied past homicidal incidents. Outpatient follow-up: Currently receiving mental health treatment follow up care at [facility] with therapist, Radha. Medications: Past trials of medications included Seroquel and Prozac. Patient reports suicidal ideation with Prozac use and Seroquel held him back. FAMILY HISTORY: - Suicide: None - Mental illness: Grandfather- Schizophrenia - Substance abuse: Father- Alcohol use disorder. SUBSTANCE ABUSE HISTORY: He denied heroin and cocaine or using other illicit substances. He denied abusing pills not prescribed to him. He denied past substance abuse treatment. He smoked cannabis daily for the last year and recently quit. He denied alcohol use in the past or present. He smokes tobacco 1/2ppd. SOCIAL HISTORY: He is a white male who has no children. 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 He doesnt have a close relationship with his father. He lives with his mother who was his primary intensive care medicine specialist during childhood. His parents when he was at a young age. Both parents are living. He has some college education . He denied special education . He denied legal history. He reported being in the [employer] for one year and exposed himself to a female and received a honorable discharge. PAST MEDICAL HISTORY: Denied past or present medical conditions Allergies: He denied known drug allergies. Allergic reaction to nuts. Physical Exam: Please see ED note Mental Status Exam on admission Appearance: 32 year old male thin has blankets wrapped around him. Psychomotor activity: No psychomotor agitation or retardation Eye contact: Fair Posture: Upright Attitude/behavior: Cooperative Speech: Mildly rapid rate of speech Mood: "Manic " Affect: constricted Thought process: flight of ideas Thought content: Tangential Perceptions: He did not appear to be responding to internal stimuli. No visual hallucinations and/ or auditory hallucinations. Suicidal/homicidal targets: Denied suicidal ideation, intent or plan. Denied homicidal ideation, intent or plans. Sensorium/orientation: Awake and alert. Oriented to self, location, and time Insight/judgment: Fair insight and judgment. Diagnosis on Admission: Bipolar I, current manic phase. Nicotine use disorder, Cannabis use disorder currently in remission. Justification for Admission: For immediate safety and stabilization of ricky from bipolar I disorder Diagnosis on Discharge: Bipolar I disorder, currently in remission Condition at the time of discharge: At the time of discharge patient was not showing any signs or symptoms of mental illness that brought this patient to the hospital and was not a danger to self or others. Patient was not showing any side effects of medication. Patient denied suicidal and/ or homicidal ideation, intent or plans. Patient was taking medications as prescribed and was not showing any side effects of medications. This patient participated in some psychosocial rehabilitation and gained some insight into problems. Therapy Resources were offered to the patient. Patient was given a month supply of prescriptions at the time of discharge. This patient plans to follow up with the follow up arrangements that were put in place. Patient was asked to keep appointments as scheduled, take medication as prescribed and refrain from any use of alcohol or drugs. His mother confirmed that he has returned to his baseline and is ready to be discharged. Objective - Appearance Appearance: Healthy Appearing Dysmorphic Features: No Hygiene: Normal Grooming: Well Kept - Behavior Psychomotor Activities: Normal Exhibits Abnormal Movement: No - Attitude and Relatedness Attitude and Relatedness: Cooperative Eye Contact: Good - Speech Quality: Unpressured - Mood Patient's Decription of Mood: "Fine" - Affect Observed Affect: Non-labile Affect Consistent with: Euthymia - Thought Process Patient's Thought Process: Coherent Thought Content: No Passive Wish, No Suicidal Planning, No Homicidal Ideation, No Paranoid Ideation - Sensorium Experiencing Hallucinations: No, Sensorium is Clear Type of Hallucinations: Visual: No, Auditory: No, Command: No - Level of Consciousness Level of Consciousness: Alert Orientation: Yes Intact, Yes Orientated to Time, Yes Orientated to Place, Yes Orientated to Person - Impulse Control Impulse Control: Intact - Insight and Judgement Insight and Judgement: Fair - Group Participation Particating in Group Activities: Yes - Medication Management Medication Management Adherence: Yes Treatment Course & Assessment Clinical Course & Impression: 32 year old white male with a history of Bipolar I presents to the ER in a manic state following discontinuing using cannabis. He has been compliant with treatment and is working toward mood stabilization. Shows improvement closer to his baseline. Hospital course part A: Reason for admission includes stabilization of ricky: Hima is a 32 year old white single male with past history of bipolar disorder presented to the Emergency room with his mother. He reported that he added 5000 facebook friends last night and has been up for the last 2 days. Because I am manic. I want to be a falken, its where I luciano with birds who go fetch my meals. He reported that he goes on facebook all day and night and sends messages to everyone he knows. He said that he wishes to go out in the [place] all day and night to hike. He reports not eating much recently I dont have a appetite. He denied suicidal ideation, intent or plan. He denied homicidal ideation intent or plan. He reports that the last time he used cannabis was July 17. He reports since stopping using cannabis he can walk far distances and spend unlimited time hiking outdoors. Hospital course part B: Treatment course tests, procedures and summary of results. The patient was admitted to the adult behavioral unit and placed on 15 minute check for safety. The patient did well on the unit and went to some groups. Interacted with peers had adequate sleep and regular appetite. Tolerated medication changes without side effects. AIMS was performed. Group therapy and services were offered. Elim levels at time of discharge was 0.61 and was consistent with improved clinical response. Medications started included seroquel 100mg qhs which was increased to 200mg po qhs. Elim was started at 300mg BID and titrated to 600mg PO BID without any side effects. Abilify 5mg po daily was started and discontinued in the course of treatment. Family meeting was held with his mother on 08/17/18 who stated that Hima is base to "himself". She reported that he can return to live with her. He reported that firearms will be locked up. He denied wanting resources to quit smoking and refused nicotine replacement or other forms of treatment to quit smoking. CBC, CMP, Lipid and HBA1c profile was performed and within normal limits. Patient was advised about the risks of treatment and possible weight gain and renal and metabolic side effects and importance to follow up with provider for labs and lithium monitoring. Risks, benefits, side effects and alternatives have been discussed with this patient. The patient verbalized an understanding and accepted his current form of treatment. Confirmed with his mother that his firearms were taken by his brother and locked in a safe out of his access. Improvements in patient from the time of admission include: Less disorganized and able to get adequate sleep. He no longer had flight of ideas and his thought process is more organized. .He is compliment with medications and future orientated, and has no access to firearms. Merits Inpatient Hospitalization: No Clear for Discharge: Adequate Clinical Respons Inpatient DSM-V Dx: F31.13 Discharge Planning - Discharge Planning Discharge Plan: Outpatient Follow Up Outpatient Program: Counseling/Psych Services at [employer] Recommendations for Continuing Care: Medication Management Medications: Current Medications Acetaminophen (Tylenol Tab*) 650 mg PO Q4H PRN PRN Reason: PAIN; OR TEMP > 101 Last Admin: 08/18/18 08:50 Dose: 650 mg Al Hydrox/Mg Hydrox/Simethicone (Maalox Plus*) 30 ml PO Q4H PRN PRN Reason: INDIGESTION Bacitracin (Bacitracin Ointment*) 1 applic TOPICAL BID PRN PRN Reason: RASH Last Admin: 08/15/18 15:40 Dose: 1 applic Device (Nicotine Mouth Piece*) 1 each INH ONCE PRN PRN Reason: CRAVING Last Admin: 08/10/18 14:24 Dose: 1 each Diphenhydramine HCl (Benadryl Po*) 50 mg PO BEDTIME PRN PRN Reason: INSOMNIA Last Admin: 08/13/18 20:00 Dose: 50 mg Haloperidol (Haldol Tab*) 5 mg PO Q4H PRN PRN Reason: AGITATION Last Admin: 08/16/18 15:48 Dose: 5 mg Elim Carbonate (Elim Carbonate Er (Nf)) 600 mg PO BEDTIME ASHLEY Last Admin: 08/17/18 20:43 Dose: 600 mg Elim Carbonate (Elim Carbonate Er (Nf)) 600 mg PO DAILY ASHLEY Last Admin: 08/18/18 08:50 Dose: 600 mg Multivitamins/Minerals (Theragran/Minerals Tab*) 1 tab PO DAILY ASHLEY Last Admin: 08/18/18 08:50 Dose: 1 tab Nicotine (Nicotine Inhaler*) 10 mg INH Q2H PRN PRN Reason: CRAVING Last Admin: 08/18/18 06:13 Dose: 10 mg Nicotine Polacrilex (Nicotine Gum*) 2 mg PO Q2H PRN PRN Reason: CRAVING Last Admin: 08/18/18 06:13 Dose: 2 mg Quetiapine Fumarate (Seroquel Tab*) 100 mg PO BEDTIME ASHLEY Last Admin: 08/17/18 20:43 Dose: 100 mg Simethicone (Mylicon Tab*) 80 mg PO Q6H PRN PRN Reason: INDIGESTION Last Admin: 08/17/18 12:27 Dose: 80 mg Sodium Chloride (Sodium Chloride 0.65% Nasal [place]*) 2 spray BOTH NARES Q2H PRN PRN Reason: NASAL DRYNESS Last Admin: 08/17/18 09:50 Dose: 2 spray Throat Lozenges (Chloraseptic Emilia*) 1 emilia PO Q6H PRN PRN Reason: COUGH Last Admin: 08/17/18 17:44 Dose: 1 emilia Discharge Planning: Prescriptions provided for discharge [x] Yes [] No Follow up care details as per social work arrangements. Patient response to discharge plan: [x] eager for discharge [] agreeable with discharge plan [] ambivalent about discharge [] disagrees with discharge today
[2018-08-18] MEDS: Benzocaine/Menthol LOZ* 1 LOZENGE PO PRN (13:00)
== END 2018-08-18 18:35 | disposition home or self-care (01) | DRG 885 ==
LOC: ED 14:35 → BSU 20:54
PROVIDERS: ADMIT Psychiatry & Neurology Psychiatry; ATTEND Psychiatry & Neurology Psychiatry
PROC: GZHZZZZ Group Psychotherapy (ICD-10-PCS; principal; 2018-08-07)
DX: F31.13 Bipolar disorder, current episode manic without psychotic features, severe (principal); F12.90 Cannabis use, unspecified, uncomplicated; F42.9 Obsessive-compulsive disorder, unspecified; Z81.8 Family history of other mental and behavioral disorders; Z91.018 Allergy to other foods; Z91.5 Personal history of self-harm; Z23 Encounter for immunization; Z72.0 Tobacco use
CPT/HCPCS: 36415; 80053; 80061; 80178; 80307; 80320; 80329; 81003; 81015; 82550; 83036; 84443; 85025; 87086; 90686; 90853; 93005; 99222; 99231; 99232; 99284; A9270-GY; G0480